=== PATIENT | female | born 1945 | race Caucasian/White ===

== ENCOUNTER 2020-06-10 11:44 | Observation (INO) | payer MEDICARE, OTHER, SELFPAY ==
--- NOTE | 2020-06-10 12:07 | ED_ITS ---
Documented by User: MARQUISE Santa 06/10/20 15:39 HPI - Skin/Abscess/Foreign Bdy General: Chief complaint: Skin/Abscess/Foreign Body Stated complaint: GROIN INFECTION Time Seen by Provider: 06/10/20 12:06 Source: patient Mode of arrival: ambulatory Limitations: no limitations History of Present Illness: HPI narrative: Patient is a nice 74-year-old female who presents to ED today with complaints of a perineal abscess. Patient tells me approximately 6 to 7 days ago she began noticing a pimple like lesion but states it quickly enlarged and became more painful. She was seen by her PCP 5 days ago and placed on clindamycin which she has been taking as directed. She was seen again by PCP today who recommended she come to the emergency department as abscess is continuing to worsen. Patient reports chills but no documented fevers. No nausea or vomiting. No history of MRSA. She is not a diabetic. MD complaint: abscess/boil Onset (ago): day(s) Tetanus up to date: yes Location: genitals Severity: moderate Pain Consistency: constant Relieving factors: none Exacerbating factors: palpation Context: none Associated symptoms: Reports chills; Deny fever(s), nausea or vomiting Treatments prior to arrival: antibiotic Review of Systems Const: Reports: chills; Denies: fever(s), body aches, fatigue or malaise Card: Denies: chest pain Resp: Denies: dyspnea GI: Denies: abdominal pain, nausea, vomiting, diarrhea or change in stool character : Denies: flank pain, difficulty voiding, dysuria, urinary frequency, urinary urgency or urinary hesitancy Musc: Denies: neck pain or back pain Skin/Breast: Reports: other (perineal abscess) Neuro: Denies: headache(s), numbness in extremities, weakness in extremities or sensory changes PFSH ED PFSH: Medical History (Updated 06/10/20 @ 16:32 by Akil Braden MD) CAD (coronary artery disease) Heart failure Hyperlipidemia Hypertension Hypothyroidism Surgical History (Updated 06/10/20 @ 16:33 by Akil Braden MD) History of cholecystectomy History of hysterectomy History of shoulder surgery Family History (Updated 06/10/20 @ 16:34 by Akil Braden MD) Father Liver cirrhosis Mother Throat cancer Other CAD (coronary artery disease) Social History (Updated 06/10/20 @ 16:34 by Akil Braden MD) Smoking and tobacco status: never smoked Alcohol intake: never Substance/Drug Use: never Physical Exam Const: COMMON NORMALS: no acute distress, patient oriented x3, no limitations, healthy appearing and alert HENMT: COMMON NORMALS: normocephalic and atraumatic HEAD & SCALP: normocephalic and atraumatic Resp: COMMON NORMALS: normal respiratory effort and clear to auscultation bilaterally AUSCULTATION: clear to auscultation bilaterally Cardio: COMMON NORMALS: regular rhythm RATE: tachycardic (mild) RHYTHM: regular rhythm GI: COMMON NORMALS: Normal to inspection, nondistended, normoactive bowel sounds present, Soft to palpation, non-tender, No hepatosplenomegaly present and no masses PALPATION: Yes Soft to palpation and Yes No hepatosplenomegaly present OTHER: pt has a 7-8cm erythematous extremely tender abscess noted to L perineal region; she has mild surrounding cellulitis extending towards rectum : COMMON NORMALS: Yes no CVA tenderness BLADDER/KIDNEY EXAM: Yes no CVA tenderness Back/Pelvis: COMMON NORMALS: no CVA tenderness Neuro: COMMON NORMALS: patient oriented x3 SENSORIUM/ORIENTATION: Yes alert Skin: OTHER: see abdominal exam Course Consultations: Consultation #1: Dr. Fischer-recommends admit to hospitalist and he will consult. Recommends adding Vancomycin to her Zosyn abx Time: 15:15 Vital Signs: Vital signs: Vital Signs Temperature 98.4 F 06/10/20 12:08 Pulse Rate 75 06/10/20 18:31 Respiratory Rate 17 06/10/20 18:31 Blood Pressure 90/51 06/10/20 18:31 Pulse Oximetry 94 06/10/20 18:31 MDM - Skin/Abscess/Foreign Bdy MDM Narrative: Medical decision making narrative: Dr. Squires is also seen and evaluated patient and agrees with need for admission. Patient has failed outpatient therapy for her abscess. Abscess on exam is much larger than what is seen via CT imaging. I have spoken to Dr. Fischer who recommends admit to hospitalist and he will consult. Dr. Squires will speak to hospitalist. Lab Data: Labs: Lab Results 06/10/20 06/10/20 06/10/20 Range/Units 12:31 12:55 12:55 WBC 11.3 H (4.0-10.0) 10^3/ uL RBC 4.06 L (4.1-5.3) 10^6/u L Hgb 13.0 (11.5-15.3) g/dL Hct 38.8 (37.0-47.0) % MCV 95.6 (81-99) fL MCH 32.0 (28.0-34.0) pg MCHC 33.5 (30.0-36.0) g/dL RDW 13.6 (12.1-15.1) % Plt Count 272 (130-400) 10^3/c mm MPV 10.0 (7.4-10.4) fL Neut % (Auto) 66.4 % Lymph % (Auto) 22.7 % Elliott % (Auto) 9.1 % Eos % (Auto) 0.9 % Baso % (Auto) 0.6 % Neut # (Auto) 7.53 (1.8-7.7) 10^3/u L Lymph # (Auto) 2.6 (0.8-4.8) 10^3/u L Elliott # (Auto) 1.0 H (0.2-0.9) 10^3/u L Eos # (Auto) 0.1 (0.0-0.8) 10^3/u L Baso # (Auto) 0.1 (0.0-0.1) 10^3/u L Nucleated RBC % (a uto) 0 % Nucleated RBCs # 0.0 /100WBC Sodium 135 L (136-145) mmol/L Potassium 4.4 (3.5-5.1) mmol/L Chloride 97 L (98-107) mmol/L Carbon Dioxide 26 (22-29) mmol/L Anion Gap 16.4 (5-19) BUN 12 (8-23) mg/dL Creatinine 0.8 (0.5-0.9) mg/dL GFR Calculation Not Reportable Glucose 116 H (65-115) mg/dL Calculated Osmolal ity 281 L (285-295) mOsm/k g Lactic Acid (0.5-2.2) mmol/L Calcium 9.2 (8.5-10.5) mg/dL Total Bilirubin 0.5 (0.15-1.2) mg/dL AST 22 (0-32) U/L ALT 19 (0-33) U/L Alkaline Phosphata se 104 (35-105) IU/L Total Protein 7.7 (6.6-8.7) g/dL Albumin 4.1 (3.5-5.2) g/dL Globulin 3.6 (1.3-4.6) g/dL Urine Color Yellow (Yellow) Urine Appearance Clear (CLEAR) Urine pH 5 (5-7) Ur Specific Gravit y 1.020 (1.005-1.030) Urine Protein Neg (Negative) Urine Glucose (UA) Norm (Normal) Urine Ketones Negative (Negative) Urine Blood 3+ H (Negative) Urine Nitrate Negative (Negative) Urine Bilirubin Neg (Negative) Urine Urobilinogen Norm (Negative) mg/dL Ur Leukocyte Pattie ase Negative (Negative) Urine RBC 0-4 H (0-2) /hpf Urine WBC 0-4 H (0-5) /hpf Ur Squamous Epith Cells 5-10 H (0-5) /hpf Amorphous Sediment Not Reportable Urine Bacteria 1+ H (NONE) /hpf Hyaline Casts 0-4 H /lpf Urine Mucus Trace /hpf 06/10/20 Range/Units 12:55 WBC (4.0-10.0) 10^3/ uL RBC (4.1-5.3) 10^6/u L Hgb (11.5-15.3) g/dL Hct (37.0-47.0) % MCV (81-99) fL MCH (28.0-34.0) pg MCHC (30.0-36.0) g/dL RDW (12.1-15.1) % Plt Count (130-400) 10^3/c mm MPV (7.4-10.4) fL Neut % (Auto) % Lymph % (Auto) % Elliott % (Auto) % Eos % (Auto) % Baso % (Auto) % Neut # (Auto) (1.8-7.7) 10^3/u L Lymph # (Auto) (0.8-4.8) 10^3/u L Elliott # (Auto) (0.2-0.9) 10^3/u L Eos # (Auto) (0.0-0.8) 10^3/u L Baso # (Auto) (0.0-0.1) 10^3/u L Nucleated RBC % (a uto) % Nucleated RBCs # /100WBC Sodium (136-145) mmol/L Potassium (3.5-5.1) mmol/L Chloride (98-107) mmol/L Carbon Dioxide (22-29) mmol/L Anion Gap (5-19) BUN (8-23) mg/dL Creatinine (0.5-0.9) mg/dL GFR Calculation Glucose (65-115) mg/dL Calculated Osmolal ity (285-295) mOsm/k g Lactic Acid 1.2 (0.5-2.2) mmol/L Calcium (8.5-10.5) mg/dL Total Bilirubin (0.15-1.2) mg/dL AST (0-32) U/L ALT (0-33) U/L Alkaline Phosphata se (35-105) IU/L Total Protein (6.6-8.7) g/dL Albumin (3.5-5.2) g/dL Globulin (1.3-4.6) g/dL Urine Color (Yellow) Urine Appearance (CLEAR) Urine pH (5-7) Ur Specific Gravit y (1.005-1.030) Urine Protein (Negative) Urine Glucose (UA) (Normal) Urine Ketones (Negative) Urine Blood (Negative) Urine Nitrate (Negative) Urine Bilirubin (Negative) Urine Urobilinogen (Negative) mg/dL Ur Leukocyte Pattie ase (Negative) Urine RBC (0-2) /hpf Urine WBC (0-5) /hpf Ur Squamous Epith Cells (0-5) /hpf Amorphous Sediment Urine Bacteria (NONE) /hpf Hyaline Casts /lpf Urine Mucus /hpf Imaging Data^: CT Abd/Pel: Radiologist's impression: [address] [id number] [address] Scan Report Signed Patient: Zaida Rendon Unit #: [id number] : 1945 Age/Sex: 74 / F ADM Date: 06/10/20 Loc: ER Room/Bed: Attending Dr: Ordering Provider/Ordering MD: Sameera Sousa Date of Service: 06/10/20 Procedure(s): CT pelvis w con* [id number] Accession Number(s): [id number] Report Number: [id number] WS: [id number] CT pelvis TECHNIQUE: Contrast-enhanced CT of the pelvis with coronal and sagittal reformatted images. CLINICAL INFORMATION: perineal abscess COMPARISON: None. DLP: 715.[address] scans at [facility] use at least one of these dose optimization techniques: automated exposure control; mA and/or kV adjustment per patient size (includes targeted exams where dose is matched to clinical indication); or iterative reconstruction. FINDINGS: Contrast-enhanced CT of the pelvis. Prior hysterectomy. In the area of concern, in the left perineum, there is soft tissue induration with edema. . Central low-attenuation peripherally enhancing low-attenuation collection measuring 2.1 x 1.2cm consistent with perineal abscess. This does not appear easily drainable. Adjacent soft tissue induration and soft tissue thickening. Subcutaneous edema in the left proximal thigh. Sigmoid diverticulosis. No evidence of acute diverticulitis. Tiny fat- containing umbilical hernia. A few reactive left inguinal lymph nodes. Grade 1 anterolisthesis L4 on L5 measuring 7 mm. Slight anterolisthesis L5 on S1. CT/CT pelvis w con* [id number] IMPRESSION: 1. Induration with inflammatory stranding and edema in the left perineum with peripheral enhancing fluid collection consistent with small abscess. This measures 2.1 x 1.2 cm and does not appear easily drainable. 2. Mild subcutaneous edema left upper thigh. A few reactive inguinal lymph nodes. 3. Sigmoid diverticulosis. No evidence of acute diverticulitis. Dictated By: Percy Estevez MD Signed By: Percy Estevez MD Signed Date/Time: 06/10/20 1445 DD/ 1412 Discharge Plan Discharge Patient Disposition: Admitted As Inpatient Admit Provider: Akil Braden Clinical Impression: Abscess of perineum Condition: Stable Sign Out Sign Out Data: Patient Sign Out occurred on 06/10/20 at 17:08. Patient's care was discussed, and care was transferred from to Gurinder Squires MD, [facility] [place]. Coding Level of Care Code ED Wound Care [facility] Consultant for Chg Fwd Exam Detailed Documented by User: Gurinder Squires MD, [facility] [place] 06/10/20 19:47 HPI - Skin/Abscess/Foreign Bdy General: Chief complaint: Skin/Abscess/Foreign Body Stated complaint: GROIN INFECTION Time Seen by Provider: 06/10/20 12:06 PFSH ED PFSH: Medical History (Updated 06/10/20 @ 16:32 by Akil Braden MD) CAD (coronary artery disease) Heart failure Hyperlipidemia Hypertension Hypothyroidism Surgical History (Updated 06/10/20 @ 16:33 by Akil Braden MD) History of cholecystectomy History of hysterectomy History of shoulder surgery Family History (Updated 06/10/20 @ 16:34 by Akil Braden MD) Father Liver cirrhosis Mother Throat cancer Other CAD (coronary artery disease) Social History (Updated 06/10/20 @ 16:34 by Akil Braden MD) Smoking and tobacco status: never smoked Alcohol intake: never Substance/Drug Use: never Course Consultations: Consultation #1: Discussed the patient with Dr. Braden, hospitalist and he kindly accepted the patient to his service. Time: 15:30 Vital Signs: Vital signs: Vital Signs Temperature 98.4 F 06/10/20 12:08 Pulse Rate 75 06/10/20 18:31 Respiratory Rate 17 06/10/20 18:31 Blood Pressure 90/51 06/10/20 18:31 Pulse Oximetry 94 06/10/20 18:31 MDM - Skin/Abscess/Foreign Bdy MDM Narrative: Medical decision making narrative: Kindly review the physician's information assistant note for complete history and physical. I also examined this patient and evaluated her and I agree with her findings. Essentially this is a 74-year-old female, nondiabetic, who presents with increasing swelling in her perineal region. She has about a 6 cm area of induration, redness, with no fluctuance but marked tenderness with a larger surrounding area of erythema. This is consistent with cellulitis. A CT scan done of her pelvis shows that there is a very small abscess which does not appear to be able to be drained at this time. She has been on antibiotics for 5 days and her symptoms are only worsening, so she has failed outpatient therapy. She therefore will benefit from inpatient stay and intravenous antibiotics. She will be evaluated by the general surgeon while she is in the hospital. I am concerned that if she is not admitted and given IV antibiotics she may develop a Roger's gangrene. I discussed my concerns with her and her and they are in agreement with the plan. Medical Records: Attestation: I reviewed the patient's medical records. Lab Data: Attestation: I reviewed the patient's lab results. Labs: Lab Results 06/10/20 06/10/20 06/10/20 Range/Units 12:31 12:55 12:55 WBC 11.3 H (4.0-10.0) 10^3/ uL RBC 4.06 L (4.1-5.3) 10^6/u L Hgb 13.0 (11.5-15.3) g/dL Hct 38.8 (37.0-47.0) % MCV 95.6 (81-99) fL MCH 32.0 (28.0-34.0) pg MCHC 33.5 (30.0-36.0) g/dL RDW 13.6 (12.1-15.1) % Plt Count 272 (130-400) 10^3/c mm MPV 10.0 (7.4-10.4) fL Neut % (Auto) 66.4 % Lymph % (Auto) 22.7 % Elliott % (Auto) 9.1 % Eos % (Auto) 0.9 % Baso % (Auto) 0.6 % Neut # (Auto) 7.53 (1.8-7.7) 10^3/u L Lymph # (Auto) 2.6 (0.8-4.8) 10^3/u L Elliott # (Auto) 1.0 H (0.2-0.9) 10^3/u L Eos # (Auto) 0.1 (0.0-0.8) 10^3/u L Baso # (Auto) 0.1 (0.0-0.1) 10^3/u L Nucleated RBC % (a uto) 0 % Nucleated RBCs # 0.0 /100WBC Sodium 135 L (136-145) mmol/L Potassium 4.4 (3.5-5.1) mmol/L Chloride 97 L (98-107) mmol/L Carbon Dioxide 26 (22-29) mmol/L Anion Gap 16.4 (5-19) BUN 12 (8-23) mg/dL Creatinine 0.8 (0.5-0.9) mg/dL GFR Calculation Not Reportable Glucose 116 H (65-115) mg/dL Calculated Osmolal ity 281 L (285-295) mOsm/k g Lactic Acid (0.5-2.2) mmol/L Calcium 9.2 (8.5-10.5) mg/dL Total Bilirubin 0.5 (0.15-1.2) mg/dL AST 22 (0-32) U/L ALT 19 (0-33) U/L Alkaline Phosphata se 104 (35-105) IU/L Total Protein 7.7 (6.6-8.7) g/dL Albumin 4.1 (3.5-5.2) g/dL Globulin 3.6 (1.3-4.6) g/dL Urine Color Yellow (Yellow) Urine Appearance Clear (CLEAR) Urine pH 5 (5-7) Ur Specific Gravit y 1.020 (1.005-1.030) Urine Protein Neg (Negative) Urine Glucose (UA) Norm (Normal) Urine Ketones Negative (Negative) Urine Blood 3+ H (Negative) Urine Nitrate Negative (Negative) Urine Bilirubin Neg (Negative) Urine Urobilinogen Norm (Negative) mg/dL Ur Leukocyte Pattie ase Negative (Negative) Urine RBC 0-4 H (0-2) /hpf Urine WBC 0-4 H (0-5) /hpf Ur Squamous Epith Cells 5-10 H (0-5) /hpf Amorphous Sediment Not Reportable Urine Bacteria 1+ H (NONE) /hpf Hyaline Casts 0-4 H /lpf Urine Mucus Trace /hpf 06/10/20 Range/Units 12:55 WBC (4.0-10.0) 10^3/ uL RBC (4.1-5.3) 10^6/u L Hgb (11.5-15.3) g/dL Hct (37.0-47.0) % MCV (81-99) fL MCH (28.0-34.0) pg MCHC (30.0-36.0) g/dL RDW (12.1-15.1) % Plt Count (130-400) 10^3/c mm MPV (7.4-10.4) fL Neut % (Auto) % Lymph % (Auto) % Elliott % (Auto) % Eos % (Auto) % Baso % (Auto) % Neut # (Auto) (1.8-7.7) 10^3/u L Lymph # (Auto) (0.8-4.8) 10^3/u L Elliott # (Auto) (0.2-0.9) 10^3/u L Eos # (Auto) (0.0-0.8) 10^3/u L Baso # (Auto) (0.0-0.1) 10^3/u L Nucleated RBC % (a uto) % Nucleated RBCs # /100WBC Sodium (136-145) mmol/L Potassium (3.5-5.1) mmol/L Chloride (98-107) mmol/L Carbon Dioxide (22-29) mmol/L Anion Gap (5-19) BUN (8-23) mg/dL Creatinine (0.5-0.9) mg/dL GFR Calculation Glucose (65-115) mg/dL Calculated Osmolal ity (285-295) mOsm/k g Lactic Acid 1.2 (0.5-2.2) mmol/L Calcium (8.5-10.5) mg/dL Total Bilirubin (0.15-1.2) mg/dL AST (0-32) U/L ALT (0-33) U/L Alkaline Phosphata se (35-105) IU/L Total Protein (6.6-8.7) g/dL Albumin (3.5-5.2) g/dL Globulin (1.3-4.6) g/dL Urine Color (Yellow) Urine Appearance (CLEAR) Urine pH (5-7) Ur Specific Gravit y (1.005-1.030) Urine Protein (Negative) Urine Glucose (UA) (Normal) Urine Ketones (Negative) Urine Blood (Negative) Urine Nitrate (Negative) Urine Bilirubin (Negative) Urine Urobilinogen (Negative) mg/dL Ur Leukocyte Pattie ase (Negative) Urine RBC (0-2) /hpf Urine WBC (0-5) /hpf Ur Squamous Epith Cells (0-5) /hpf Amorphous Sediment Urine Bacteria (NONE) /hpf Hyaline Casts /lpf Urine Mucus /hpf Discharge Plan Discharge Patient Disposition: Admitted As Inpatient Admit Provider: Akil Braden Clinical Impression: Abscess of perineum Condition: Stable Sign Out Sign Out Data: Patient Sign Out occurred on 06/10/20 at 17:08. Patient's care was discussed, and care was transferred from to Gurinder Squires MD, [facility] [place]. Coding Level of Care Code ED Wound Care Center Consultant for Chg Fwd Exam Detailed
[2020-06-10 12:08] VITALS: BP 145/75; PULSE 101; RESP 16; TEMP 36.9; O2SAT 96; BMI 30.7
--- NOTE | 2020-06-10 12:36 | CT_ITS ---
WS: [id number] CT pelvis TECHNIQUE: Contrast-enhanced CT of the pelvis with coronal and sagittal reformatted images. CLINICAL INFORMATION: perineal abscess COMPARISON: None. DLP: 715.[address] scans at [facility] use at least one of these dose optimization techniques: automat ed exposure control; mA and/or kV adjustment per patient size (includes targeted exams where dose is matched to clinical indication); or iterative reconstruction. FINDINGS: Contrast-enhanced CT of the pelvis. Prior hysterectomy. In the area of concern, in the left perineum, there is soft tissue induration with edema. . Central low-attenuation peripherally enhancing low-att enuation collection measuring 2.1 x 1.2cm consistent with perineal abscess. This does not appear easi ly drainable. Adjacent soft tissue induration and soft tissue thickening. Subcutaneous edema in the l eft proximal thigh. Sigmoid diverticulosis. No evidence of acute diverticulitis. Tiny fat-containing umbilical hernia. A few reactive left inguinal lymph nodes. Grade 1 anterolisthesis L4 on L5 measuring 7 mm. Slight anter olisthesis L5 on S1. CT/CT pelvis w con* [id number] IMPRESSION: 1. Induration with inflammatory stranding and edema in the left perineum with peripheral enhancing fluid collection consistent with small abscess. This measu res 2.1 x 1.2 cm and does not appear easily drainable. 2. Mild subcutaneous edema left upper thigh. A few reactive inguinal lymph nod es. 3. Sigmoid diverticulosis. No evidence of acute diverticulitis.
[2020-06-10 12:44] LABS: Add Urine Microscopic? YES; Bilirubin Urine Neg (Negative); Blood Urine 3+ (Negative); Glucose Urine UA Norm (Normal); Ketones Urine Negative (Negative); Leukocyte Esterase Urine Negative (Negative); Nitrate Urine Negative (Negative); Protein Urine Neg (Negative); Urine Appearance Clear (CLEAR); Urine Color Yellow (Yellow); Urobilinogen Urine Norm (Negative); pH Urine 5 (5-7)
[2020-06-10 12:48] LABS: Bacteria Urine 1+ /hpf; Hyaline Casts Urine 0-4 /lpf; Mucus Urine TRACE /hpf
[2020-06-10 12:49] LABS: Add Urine Culture? No; RBC Urine 0-4 /hpf (0-2); WBC Urine 0-4 /hpf (0-5)
[2020-06-10 13:09] LABS: Basophils # 0.1 10^3/uL (0.0-0.1); Basophils % 0.6 %; Eosinophils # 0.1 10^3/uL (0.0-0.8); Eosinophils % 0.9 %; Hematocrit 38.8 % (37.0-47.0); Lymphocytes # 2.6 10^3/uL (0.8-4.8); Lymphocytes % 22.7 %; Mean Corpuscular HGB Conc 33.5 g/dL (30.0-36.0); Mean Corpuscular Volume 95.6 fL (81-99); Monocytes % 9.1 %; Neutrophils # 7.53 10^3/uL (1.8-7.7); Neutrophils % 66.4 %; Nucleated Red Blood Cells % 0 %; Platelet Count 272 10^3/cmm (130-400); Red Blood Count 4.06 10^6/uL (4.1-5.3); Red Cell Distribution Width 13.6 % (12.1-15.1); White Blood Count 11.3 10^3/uL (4.0-10.0)
[2020-06-10 13:29] LABS: Lactic Sepsis W/Reflex 1.2 mmol/L (0.5-2.2)
[2020-06-10 13:30] LABS: Alanine Aminotransferase 19 U/L (0-33); Albumin Level 4.1 g/dL (3.5-5.2); Alkaline Phosphatase 104 IU/L (35-105); Anion Gap 16.4 (5-19); Aspartate Amino Transferase 22 U/L (0-32); Blood Urea Nitrogen 12 mg/dL (8-23); Calcium 9.2 mg/dL (8.5-10.5); Carbon Dioxide 26 mmol/L (22-29); Chloride 97 mmol/L (98-107); Creatinine Clr Calc Pharmacy 67.1951; Globulin 3.6 g/dL (1.3-4.6); Glucose 116 mg/dL (65-115); Osmolality Calculated 281 mOsm/kg (285-295); Potassium 4.4 mmol/L (3.5-5.1); Sodium 135 mmol/L (136-145); Total Bilirubin 0.5 mg/dL (0.15-1.2); Total Protein 7.7 g/dL (6.6-8.7)
[2020-06-10] MEDS: piperacillin-tazobactam 3.375 GM in sodium chloride 0.9% (plus) 50 ML IV (13:30)
[2020-06-10] MEDS: ondansetron 2 mg/ML SDV 2 mL 4 MG IVP (13:35)
[2020-06-10 13:38] VITALS: RESP 18; O2SAT 95
[2020-06-10] MEDS: morphine 4 mg/mL SDV 1 mL IVP ×2 (13:38→17:55)
[2020-06-10] MEDS: iodixanol 320 mg/mL 100mL Btl IV (14:00)
[2020-06-10] MEDS: vancomycin 1,000 MG in sodium chloride 0.9% 250 ML 250 MG IV (15:33)
--- NOTE | 2020-06-10 16:30 | PM.HP ---
Providers/Chief Complaint Primary Care Provider: Jenny Azevedo MD Chief Complaint: GROIN INFECTION History of Present Illness Zaida Rendon is a 74 year old female with a past medical history of CAD x5, CHF, hypertension, hyperlipidemia, hypothyroidism, GERD who presents to [facility] due to complaints of a perineal abscess. Patient developed a pimple over her perineal area, the pimple evolved, became large, fluctuant, painful, hot, warm. She had tried sitz bath's without any benefit. She presented to her primary care physician's office who prescribed her clindamycin, she is been taking it for the last 5 days, however the erythema, pain, tenderness has evolved. She also describes chills. No fevers. No cough. No exposure to COVID-19. Review of Systems Const: Denies: fever(s), chills, fatigue or malaise Eyes: Denies: change in vision or blurry vision ENMT: Denies: nasal congestion Card: Denies: chest pain Resp: Denies: dyspnea, productive cough, non-productive cough or wheezing GI: Denies: abdominal pain, nausea, vomiting, hematemesis, diarrhea, constipation, hematochezia or melena : Denies: flank pain, dysuria or urinary frequency Musc: Denies: neck pain or back pain Skin/Breast: Denies: rash Neuro: Denies: headache(s), dizziness or vertigo Psych: Denies: anxiety or depression Endo: Denies: polyuria or polydipsia Medications/Allergies Home Medications Medication Instructions Recorded Confirmed Last Taken Type acyclovir 800 mg PO DAILY PRN 06/10/20 06/10/20 06/10/20 History alprazolam 0.25 mg PO BID PRN 06/10/20 06/10/20 Unknown History amlodipine 2.5 mg PO DAILY@0600 06/10/20 06/10/20 06/10/20 History aspirin [Aspir-81] 81 mg PO DAILY@0600 06/10/20 06/10/20 06/10/20 History cetirizine [Zyrtec] 5 mg PO DAILY@0700 06/10/20 06/10/20 06/10/20 History clindamycin HCl 150 mg PO QID@06,10,15,19 06/10/20 06/10/2006/10/21 History furosemide See Rx Instructions .ROUTE .COMPLEX 06/10/20 06/10/20 06/09/20 History furosemide See Rx Instructions .ROUTE .COMPLEX 06/10/20 06/10/20 06/10/20 History hydrocodone-acetaminophen 1 tab PO Q4H PRN 06/10/20 06/10/20 06/10/20 History isosorbide mononitrate 60 mg PO DAILY@0600 06/10/20 06/10/20 06/10/20 History levothyroxine 50 mcg PO DAILY@0600 06/10/20 06/10/20 06/10/20 History metoprolol succinate 25 mg PO DAILY@1900 06/10/20 06/10/20 06/09/20 History naloxone [Narcan] 4 mg INTRANASAL ONCE 06/10/20 06/10/20 Unknown History omeprazole 20 mg PO DAILY@0600 06/10/20 06/10/20 Unknown History rosuvastatin 20 mg PO DAILY@1900 06/10/20 06/10/20 06/09/20 History Allergies Allergy/AdvReac Type Severity Reaction Status Date / Time acetaminophen [From Zeynep] Allergy ALGY-Difficulty Verified 06/10/20 12:17 Breathing chlorpheniramine Allergy ALGY-Difficulty Verified 06/10/20 12:17 [From Zeynep] Breathing nabumetone [From Relafen] Allergy ALGY-Rash Verified 06/10/20 12:17 oxymetazoline [From Zeynep] Allergy ALGY-Difficulty Verified 06/10/20 12:17 Breathing pheniramine [From Zeynep] Allergy ALGY-Difficulty Verified 06/10/20 12:17 Breathing phenylephrine [From Zeynep] Allergy ALGY-Difficulty Verified 06/10/20 12:17 Breathing pseudoephedrine Allergy ALGY-Difficulty Verified 06/10/20 12:17 [From Zeynep] Breathing Sulfa (Sulfonamide Allergy ALGY-Hives Verified 06/10/20 12:17 Antibiotics) sodium bisulphite Allergy ADR-Cough Uncoded 06/10/20 12:17 PFSH Acute PFSH: Medical History (Updated 06/10/20 @ 16:32 by Akil Braden MD) CAD (coronary artery disease) Heart failure Hyperlipidemia Hypertension Hypothyroidism Surgical History (Updated 06/10/20 @ 16:33 by Akil Braden MD) History of cholecystectomy History of hysterectomy History of shoulder surgery Family History (Updated 06/10/20 @ 16:34 by Akil Braden MD) Father Liver cirrhosis Mother Throat cancer Other CAD (coronary artery disease) Social History (Updated 06/10/20 @ 16:34 by Akil Braden MD) Smoking and tobacco status: never smoked Alcohol intake: never Substance/Drug Use: never Vitals/I&O/Wt Last Vital Signs Temp 98.4 F 06/10/20 12:08 Pulse 101 H 06/10/20 12:08 Resp 18 06/10/20 13:38 BP 145/75 06/10/20 12:08 Pulse Ox 95 06/10/20 13:38 Weight last 48 hrs Weight 86.183 kg Physical Exam Const: COMMON NORMALS: no acute distress and patient oriented x3 GENERAL APPEARANCE: cooperative and comfortable HENMT: COMMON NORMALS: normocephalic HEAD & SCALP: normocephalic Eye: COMMON NORMALS: Equal, round and reactive pupils present and EOMs intact bilaterally GENERAL EYE: appearance normal, both eyes and all related structures PUPIL: Yes Equal, round and reactive pupils present Neck/C-Spine: COMMON NORMALS: full ROM, no lymphadenopathy, no JVD and Thyroid normal THYROID: Thyroid normal Lymph: LYMPHATIC: no lymphadenopathy noted Resp: COMMON NORMALS: normal respiratory effort, No retractions, No use of accessory muscles and clear to auscultation bilaterally AUSCULTATION: clear to auscultation bilaterally Cardio: COMMON NORMALS: no JVD, regular rate, regular rhythm, S1 normal heart sound present, S2 normal heart sound present, No gallops present (Cardio), No clicks present (Cardio) and No murmurs present (Cardio) RATE: regular rate RHYTHM: regular rhythm HEART SOUNDS: S1 normal heart sound present and S2 normal heart sound present GI: COMMON NORMALS: Normal to inspection, nondistended, normoactive bowel sounds present, Soft to palpation, non-tender and No hepatosplenomegaly present PALPATION: Yes Soft to palpation and Yes No hepatosplenomegaly present Back/Pelvis: OTHER: Over the perineum, a 2 x 3 cm area of erythema, tenderness, abscess, tender, Extremity: COMMON NORMALS: normal to inspection, full ROM and no pedal edema Neuro: COMMON NORMALS: patient oriented x3, CN's II-XII intact bilaterally, moves all extremities and no focal motor deficits Psych: COMMON NORMALS: mental status grossly normal, Normal thought process present and cooperative THOUGHT PROCESS: Normal thought process present Data : 06/10/20 12:55 06/10/20 12:55 Micro: Microbiology 06/10/20 13:04 Blood Culture - Preliminary Blood SPECIMEN COLLECTED 06/10/20 13:04 Blood Culture - Preliminary Blood SPECIMEN COLLECTED A&P Assessment and plan (1) Abscess of perineum: -With surrounding cellulitis -Induration with inflammatory stranding and edema in the left perineum with peripheral enhancing fluid collection consistent with small abscess. This measures 2.1 x 1.2 cm and does not appear easily drainable. -Failed outpatient antibiotic treatment Plan: -Consult general surgery for possible drainage -Vancomycin, Rocephin, Flagyl -Blood cultures, wound cultures -Monitor clinical progress monitor for fevers -Heparin for DVT prophylaxis -Full code Status: Acute (2) CAD (coronary artery disease): Status: Acute (3) Hypertension: Status: Acute (4) Hyperlipidemia: Status: Acute (5) Heart failure: Status: Acute (6) Hypothyroidism: Status: Acute Attestations Medical Necessity Statement*: Patient course hospitalization for abscess in the perineum, with surrounding cellulitis, outpatient with observation Coding Level of Care Code Acute Digital Camera Technician for [facility] Blank Diagnoses Abscess of perineum L02.215 CAD (coronary artery disease) I25.10 Hypertension I10 Hyperlipidemia E78.5 Heart failure I50.9 Hypothyroidism E03.9
[2020-06-10] MEDS: ketorolac 30 mg/mL INJ IVP (17:51)
[2020-06-10 17:55] VITALS: RESP 16; O2SAT 95
[2020-06-10 18:31] VITALS: BP 90/51; PULSE 75; RESP 17; O2SAT 94
[2020-06-10 20:04] VITALS: BP 115/75; PULSE 76; RESP 16; O2SAT 96
[2020-06-10 20:48] VITALS: BP 133/68; PULSE 71; RESP 17; TEMP 36.4; O2SAT 97
[2020-06-10 21:22] LABS: Procalcitonin 0.09 ng/mL (0-0.5)
[2020-06-10] MEDS: famotidine 20 mg Tablet PO (21:26)
[2020-06-10] MEDS: metroNIDAZOLE IV 500 MG/100 ML PREMIX 100 MG IV (21:26)
[2020-06-10] MEDS: metoprolol succinate ER (24 HR) 25 mg Tablet PO (22:34)
[2020-06-10] MEDS: heparin 5,000 unit/mL INJ 1 mL 5000 UNIT SUBCUT (22:34)
[2020-06-10] MEDS: cefTRIAXone 1,000 MG in sodium chloride 0.9% (plus) 50 ML 100 MG IV (23:18)
[2020-06-11] VITALS: BP 93/58; PULSE 67; RESP 17; TEMP 36.6; O2SAT 95
[2020-06-11 04:00] VITALS: BP 87/50; PULSE 66; RESP 17; TEMP 36.6; O2SAT 91
[2020-06-11] MEDS: vancomycin 1,500 MG/300 ML PIGGYBACK 200 MG IV (04:23)
[2020-06-11 05:06] LABS: Basophils % 0.5 %; Eosinophils # 0.2 10^3/uL (0.0-0.8); Eosinophils % 2.9 %; Hematocrit 38.6 % (37.0-47.0); Hemoglobin 12.7 g/dL (11.5-15.3); Lymphocytes # 1.8 10^3/uL (0.8-4.8); Lymphocytes % 23.9 %; Mean Corpuscular HGB Conc 32.9 g/dL (30.0-36.0); Mean Corpuscular Hemoglobin 31.6 pg (28.0-34.0); Mean Platelet Volume 10.2 fL (7.4-10.4); Monocytes # 0.6 10^3/uL (0.2-0.9); Monocytes % 8.2 %; Neutrophils # 4.95 10^3/uL (1.8-7.7); Neutrophils % 64.1 %; Nucleated Red Blood Cells % 0 %; Platelet Count 256 10^3/cmm (130-400); Red Blood Count 4.02 10^6/uL (4.1-5.3); Red Cell Distribution Width 13.7 % (12.1-15.1); White Blood Count 7.7 10^3/uL (4.0-10.0)
[2020-06-11 05:34] VITALS: BP 103/58
[2020-06-11 05:36] LABS: Alanine Aminotransferase 22 U/L (0-33); Albumin Level 3.7 g/dL (3.5-5.2); Alkaline Phosphatase 87 IU/L (35-105); Anion Gap 14.2 (5-19); Aspartate Amino Transferase 24 U/L (0-32); Blood Urea Nitrogen 14 mg/dL (8-23); Calcium 9.6 mg/dL (8.5-10.5); Carbon Dioxide 27 mmol/L (22-29); Chloride 99 mmol/L (98-107); Globulin 3.6 g/dL (1.3-4.6); Glucose 93 mg/dL (65-115); Magnesium 2.2 mg/dL (1.7-2.3); Osmolality Calculated 282 mOsm/kg (285-295); Phosphorus 5.2 mg/dL (2.5-4.5); Potassium 4.2 mmol/L (3.5-5.1); Sodium 136 mmol/L (136-145); Total Bilirubin 0.4 mg/dL (0.15-1.2); Total Protein 7.3 g/dL (6.6-8.7)
[2020-06-11] MEDS: pantoprazole DR 40 mg Tablet PO (06:07)
[2020-06-11] MEDS: amlodipine 5 mg Tablet 2.5 MG PO (06:07)
[2020-06-11] MEDS: cetirizine 10 mg Tablet 5 MG PO (06:07)
[2020-06-11] MEDS: aspirin 81 mg EC Tablet PO (06:07)
[2020-06-11] MEDS: levothyroxine 50 mcg Tablet PO (06:07)
[2020-06-11] MEDS: isosorbide mononitrate ER 60 mg Tablet PO (06:08)
[2020-06-11] MEDS: metroNIDAZOLE IV 500 MG/100 ML PREMIX 100 MG IV ×2 (06:27→13:46)
[2020-06-11 07:31] VITALS: BP 104/65; PULSE 67; RESP 16; TEMP 36.8; O2SAT 95
[2020-06-11] MEDS: heparin 5,000 unit/mL INJ 1 mL 5000 UNIT SUBCUT (08:40)
[2020-06-11] MEDS: famotidine 20 mg Tablet PO (08:40)
[2020-06-11 11:51] VITALS: BP 109/63; PULSE 70; RESP 16; TEMP 36.6; O2SAT 93
--- NOTE | 2020-06-11 12:04 | P.PN_ITS ---
Subjective Subjective: Interval history: Patient was examined this morning, she tells me that she is having drainage and blood coming from her perineal abscess, she has not gotten any pain medications yet, no fevers, chills, no nausea, no vomiting, Vitals/I&O/Wt Last Vital Signs Temp 97.8 F 06/11/20 11:51 Pulse 70 06/11/20 11:51 Resp 16 06/11/20 11:51 BP 109/63 06/11/20 11:51 Pulse Ox 93 06/11/20 11:51 06/10/20 06/11/20 06/11/20 22:59 06:59 14:59 Intake Total 340 / 340 400 / 740 100 / 100 Balance 340 / 340 400 / 740 100 / 100 Weight last 48 hrs Weight 86.183 kg Physical Exam Const: COMMON NORMALS: no acute distress and patient oriented x3 HENMT: COMMON NORMALS: normocephalic HEAD & SCALP: normocephalic Neck/C-Spine: COMMON NORMALS: no JVD Resp: COMMON NORMALS: normal respiratory effort, No retractions, No use of accessory muscles and clear to auscultation bilaterally AUSCULTATION: clear to auscultation bilaterally Cardio: COMMON NORMALS: no JVD, regular rate, regular rhythm, S1 normal heart sound present and S2 normal heart sound present RATE: regular rate RHYTHM: regular rhythm HEART SOUNDS: S1 normal heart sound present and S2 normal heart sound present GI: COMMON NORMALS: Normal to inspection, nondistended, normoactive bowel sounds present, Soft to palpation, non-tender, No hepatosplenomegaly present, no masses and no bruits PALPATION: Yes Soft to palpation and Yes No hepatosplenomegaly present Extremity: COMMON NORMALS: capillary refill normal, no clubbing, cyanosis or edema, no calf tenderness and no pedal edema Neuro: COMMON NORMALS: patient oriented x3 Psych: COMMON NORMALS: mental status grossly normal Skin: NARRATIVE SKIN EXAM: Perineal abscess, with surrounding cellulitis, improved, with active bleeding and purulent drainage Data : 06/11/20 04:50 06/11/20 04:50 Micro: Microbiology 06/10/20 13:04 Blood Culture - Preliminary Blood SPECIMEN COLLECTED 06/10/20 13:04 Blood Culture - Preliminary Blood SPECIMEN COLLECTED A&P Assessment and plan (1) Abscess of perineum: -With surrounding cellulitis -Induration with inflammatory stranding and edema in the left perineum with peripheral enhancing fluid collection consistent with small abscess. This measures 2.1 x 1.2 cm and does not appear easily drainable. -Failed outpatient antibiotic treatment Plan: -Consult general surgery for drainage today, n.p.o. -Vancomycin, Rocephin, Flagyl -Blood cultures, wound cultures -Monitor clinical progress monitor for fevers -Heparin for DVT prophylaxis -Full code Status: Acute (2) CAD (coronary artery disease): Status: Acute (3) Hypertension: Status: Acute (4) Hyperlipidemia: Status: Acute (5) Heart failure: Status: Acute (6) Hypothyroidism: Status: Acute Attestations Medical Necessity Statement*: Patient requires hospitalization for abscess of the perineum, required IV antibiotic therapy, surgical drainage Coding Level of Care Code Acute Grain Elevator Superintendent for [facility] Fwd Diagnoses Abscess of perineum L02.215 CAD (coronary artery disease) I25.10 Hypertension I10 Hyperlipidemia E78.5 Heart failure I50.9 Hypothyroidism E03.9
[2020-06-11] MEDS: HYDROcodone-acetaminophen 5-325 mg Tablet 1 TAB PO (12:37)
[2020-06-11] MEDS: morphine 4 mg/mL SDV 1 mL 3 MG IVP (14:11)
--- NOTE | 2020-06-11 14:37 | P.DS_ITS ---
Discharge Providers Date of Admission: 06/10/20 15:41 Date of Discharge: June 11, 2020 Attending Provider at Admission: Akil Braden MD Attending Provider at Discharge: Akil Braden MD Primary Care Provider: Jenny Azevedo MD Diagnoses at Discharge Discharge Diagnosis (1) Abscess of perineum: Status: Acute (2) CAD (coronary artery disease): Status: Acute (3) Hypertension: Status: Acute (4) Hyperlipidemia: Status: Acute (5) Heart failure: Status: Acute (6) Hypothyroidism: Status: Acute Reason for Visit Reason for Visit: GROIN INFECTION Hospital Course Hospital Course Zaida Rendon is a 74 year old female with a past medical history of CAD x5, CHF, hypertension, hyperlipidemia, hypothyroidism, GERD who presents to [facility] due to complaints of a perineal abscess. Patient developed a pimple over her perineal area, the pimple evolved, became large, fluctuant, painful, hot, warm. She had tried sitz bath's without any benefit. She presented to her primary care physician's office who prescribed her clindamycin, she is been taking it for the last 5 days, however the erythema, pain, tenderness has evolved. She also describes chill Patient was admitted to [facility] for perineal abscess with surr ounding cellulitis, received broad-spectrum antibiotic therapy, had a incision and drainage by Dr. Fischer, with packing material placed. Patient will be discharged on 7 days of doxycycline and Augmentin, Ultram for pain, follow-up with Dr. Fischer on Wednesday for removal of packing. Physical Exam Const: COMMON NORMALS: no acute distress and patient oriented x3 HENMT: COMMON NORMALS: normocephalic HEAD & SCALP: normocephalic Neck/C-Spine: COMMON NORMALS: no JVD Resp: COMMON NORMALS: normal respiratory effort, No retractions, No use of accessory muscles and clear to auscultation bilaterally AUSCULTATION: clear to auscultation bilaterally Cardio: COMMON NORMALS: no JVD, regular rate, regular rhythm, S1 normal heart sound present and S2 normal heart sound present RATE: regular rate RHYTHM: regular rhythm HEART SOUNDS: S1 normal heart sound present and S2 normal heart sound present GI: COMMON NORMALS: Normal to inspection, nondistended, normoactive bowel sounds present, Soft to palpation, non-tender, No hepatosplenomegaly present, no masses and no bruits PALPATION: Yes Soft to palpation and Yes No hepatosplenomegaly present Extremity: COMMON NORMALS: capillary refill normal, no clubbing, cyanosis or edema, no calf tenderness and no pedal edema Neuro: COMMON NORMALS: patient oriented x3 Psych: COMMON NORMALS: mental status grossly normal Discharge Data Data Completed and Pending: Completed Studies During Hospitalization Category Date Time Status CT pelvis w con* [id number] Urgent Cat Scan 06/10/20 12:36 Completed Pending at discharge Category Date Time Status Blood Culture Sta t Lab 06/10/20 13:04 Results Complete Blood Co unt w/Auto AM LABS Lab 06/12/20 04:00 Ordered Complete Blood Co unt w/Auto AM LABS Lab 06/13/20 04:00 Ordered Comprehensive Met abolic Panel AM LA BS Lab 06/12/20 04:00 Ordered Comprehensive Met abolic Panel AM LA BS Lab 06/13/20 04:00 Ordered Magnesium AM LABS Lab 06/12/20 04:00 Ordered Magnesium AM LABS Lab 06/13/20 04:00 Ordered Phosphorus AM LAB S Lab 06/12/20 04:00 Ordered Phosphorus AM LAB S Lab 06/13/20 04:00 Ordered Vancomycin Trough Timed Lab 06/12/20 03:00 Ordered Labs from last 24 hours 06/11/20 06/11/20 06/10/20 04:50 04:50 12:55 WBC 7.7 RBC 4.02 L Hgb 12.7 Hct 38.6 MCV 96.0 MCH 31.6 MCHC 32.9 RDW 13.7 Plt Count 256 MPV 10.2 Neut % (Auto) 64.1 Lymph % (Auto) 23.9 [place] % (Auto) 8.2 Eos % (Auto) 2.9 Baso % (Auto) 0.5 Neut # (Auto) 4.95 Lymph # (Auto) 1.8 [place] # (Auto) 0.6 Eos # (Auto) 0.2 Baso # (Auto) 0.0 Nucleated RBC % (a uto) 0 Nucleated RBCs # 0.0 Sodium 136 Potassium 4.2 Chloride 99 Carbon Dioxide 27 Anion Gap 14.2 BUN 14 Creatinine 0.9 GFR Calculation Not Reportable Glucose 93 Calculated Osmolal ity 282 L Calcium 9.6 Phosphorus 5.2 H Magnesium 2.2 Total Bilirubin 0.4 AST 24 ALT 22 Alkaline Phosphata se 87 C-Reactive Protein 47.0 H Total Protein 7.3 Albumin 3.7 Globulin 3.6 Procalcitonin 0.09 Vitals: Last Vital Signs Temp 97.8 F 06/11/20 11:51 Pulse 70 06/11/20 11:51 Resp 16 06/11/20 11:51 BP 109/63 06/11/20 11:51 Pulse Ox 93 06/11/20 11:51 Discharge Plan Discharge Patient Disposition: Home Condition: Stable Prescriptions: New tramadol 50 mg tablet 50 mg PO Q12H PRN (Reason: pain) 7 Days Qty: 14 RF: 0 amoxicillin-pot clavulanate [Augmentin] 875-125 mg tablet 1 tab PO Q12H 7 Days Qty: 14 RF: 0 doxycycline hyclate 100 mg tablet 100 mg PO BID 7 Days Qty: 14 RF: 0 Continued furosemide 40 mg tablet See Rx Instructions .ROUTE .COMPLEX RF: 0 Zyrtec 10 mg Tablet 5 mg PO DAILY@0700 RF: 0 amlodipine 2.5 mg tablet 2.5 mg PO DAILY@0600 RF: 0 acyclovir 800 mg tablet 800 mg PO DAILY PRN (Reason: Pain) RF: 0 isosorbide mononitrate 60 mg tablet extended release 24 hr 60 mg PO DAILY@0600 RF: 0 alprazolam 0.25 mg Tablet 0.25 mg PO BID PRN (Reason: Anxiety) RF: 0 levothyroxine 50 mcg tablet 50 mcg PO DAILY@0600 RF: 0 omeprazole 20 mg capsule,delayed release(DR/EC) 20 mg PO DAILY@0600 RF: 0 furosemide 20 mg tablet See Rx Instructions .ROUTE .COMPLEX RF: 0 metoprolol succinate 25 mg tablet extended release 24 hr 25 mg PO DAILY@1900 RF: 0 rosuvastatin 20 mg tablet 20 mg PO DAILY@1900 RF: 0 Narcan 4 mg/actuation spray,non-aerosol 4 mg INTRANASAL ONCE RF: 0 Aspir-81 81 mg Tablet,Delayed Release (Dr/Ec) 81 mg PO DAILY@0600 RF: 0 Nitrostat 0.4 mg Tablet, Sublingual 0.4 mg SUBLINGUAL Q5M PRN (Reason: Chest Pain) RF: 0 Prolia 60 mg/mL Syringe SUBCUT RF: 0 Ducodyl (bisacodyl) 5 mg Tablet,Delayed Release (Dr/Ec) 5 mg PO BID RF: 0 Discontinued hydrocodone-acetaminophen 5-325 mg tablet 1 tab PO Q4H PRN (Reason: Pain) RF: 0 clindamycin HCl 150 mg capsule 150 mg PO QID@06,,,19 RF: 0 Discharge Orders: Discharge Order (Routine); Ordered 06/11/20 Ordered By: Akil Braden Referrals: Jenny Azevedo MD [Primary Care Provider] - Santo Fischer MD [Physician] - 06/14/20 (remove packing) Discharge Diet: Cardiac Discharge Activity: Resume usual activity Activity Restrictions/Additional Instructions: -take antibiotics as prescribed -If any worsening fevers, chills come back to emergency room -Keep packing material in, keep the area clean and dry -Tramadol for pain -Follow-up with Dr. Fischer on Wednesday for removal of packing Discharge Attestations Time Spent in Discharge Care*: less than 30 min Quality Metrics Clinical Quality Measures During this hospital stay, did patient experience: None Coding Level of Care Code Acute Em Physician for [facility] Fwd Diagnoses Abscess of perineum L02.215 CAD (coronary artery disease) I25.10 Hypertension I10 Hyperlipidemia E78.5 Heart failure I50.9 Hypothyroidism E03.9
[2020-06-11 15:25] VITALS: BP 121/68; PULSE 77; RESP 18; TEMP 36.5; O2SAT 93
--- NOTE | 2020-06-16 13:17 | P.CONIM_ITS ---
Providers/Reason For Consult Consulting Physican/Specialty*: Dr. 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 She tried sitz bath's but it progressively got worse in spite of being on clindamycin. She denies any fevers or chills. A CT of the pelvis showed 2.1 x 1.2 cm collection with surrounding edema and induration and patient is admitted to the hospital for IV antibiotics Review of Systems General: Reports: 10 or more systems reviewed and unremarkable except in HPI and below Meds/Allergies Home Medications and Allergies Home Medications Medication Instructions Recorded Confirmed Last Taken Type Ducodyl (bisacodyl) 5 mg PO BID 06/10/20 06/14/20 06/10/20 06:00 History Narcan 4 mg INTRANASAL ONCE 06/10/20 06/14/20 Unknown History Nitrostat 0.4 mg SUBLINGUAL Q5M PRN 06/10/20 06/14/20 05/24/20 20:00 History Prolia mg SUBCUT 06/10/20 06/14/20 Unknown History Zyrtec 5 mg PO DAILY@0700 06/10/20 06/14/20 06/10/20 History acyclovir 800 mg PO DAILY PRN 06/10/20 06/14/20 06/10/20 History alprazolam 0.25 mg PO BID PRN 06/10/20 06/14/20 Unknown History amlodipine 2.5 mg PO DAILY@0600 06/10/20 06/14/20 06/10/20 History aspirin 81 mg PO DAILY@0600 06/10/20 06/14/20 06/10/20 History furosemide See Rx Instructions .ROUTE .COMPLEX 06/10/20 06/14/20 06/09/20 History furosemide See Rx Instructions .ROUTE .COMPLEX 06/10/20 06/14/20 06/10/20 History isosorbide mononitrate 60 mg PO DAILY@0600 06/10/20 06/14/20 06/10/20 History levothyroxine 50 mcg PO DAILY@0600 06/10/20 06/14/20 06/10/20 History metoprolol succinate 25 mg PO DAILY@1900 06/10/20 06/14/20 06/09/20 History omeprazole 20 mg PO DAILY@0600 06/10/20 06/14/20 Unknown History rosuvastatin 20 mg PO DAILY@1900 06/10/20 06/14/20 06/09/20 History amoxicillin-pot clavulanate 1 tab PO Q12H 7 Days #14 tab 06/11/20 06/14/20 Unknown Rx [Augmentin] doxycycline hyclate 100 mg PO BID 7 Days #14 tab 06/11/20 06/14/20 Unknown Rx tramadol 50 mg PO Q12H PRN 7 Days #14 tab 06/11/20 06/14/20 Unknown Rx Allergies Allergy/AdvReac Type Severity Reaction Status Date / Time acetaminophen [From Zeynep] Allergy ALGY-Difficulty Verified 06/14/20 09:38 Breathing chlorpheniramine Allergy ALGY-Difficulty Verified 06/14/20 09:38 [From Zeynep] Breathing nabumetone [From Sarah] Allergy ALGY-Rash Verified 06/14/20 09:38 oxymetazoline [From Zeynep] Allergy ALGY-Difficulty Verified 06/14/20 09:38 Breathing pheniramine [From Zeynep] Allergy ALGY-Difficulty Verified 06/14/20 09:38 Breathing phenylephrine [From Zeynep] Allergy ALGY-Difficulty Verified 06/14/20 09:38 Breathing pseudoephedrine Allergy ALGY-Difficulty Verified 06/14/20 09:38 [From Zeynep] Breathing Sulfa (Sulfonamide Allergy ALGY-Hives Verified 06/14/20 09:38 Antibiotics) sodium bisulphite Allergy ADR-Cough Uncoded 06/14/20 09:38 PFSH Acute PFSH: Medical History CAD (coronary artery disease) Heart failure Hyperlipidemia Hypertension Hypothyroidism Surgical History H/O tubal ligation H/O varicose vein ligation History of cholecystectomy History of coronary artery stent placement History of hysterectomy History of incision and drainage (~05/2020) History of shoulder surgery Hx of appendectomy Family History Father Liver cirrhosis Mother Throat cancer Other CAD (coronary artery disease) Social History Smoking and tobacco status: never smoked Alcohol intake: never Vitals/I&O/Wt Last Vital Signs Temp 97.7 F 06/11/20 15:25 Pulse 77 06/11/20 15:25 Resp 18 06/11/20 15:25 BP 121/68 06/11/20 15:25 Pulse Ox 93 06/11/20 15:25 Physical Exam Narrative: EXAM NARRATIVE: HEENT: Normocephalic Eye: Sclera /conjunctiva normal Respiratory and chest: Bilateral clear breath sounds on auscultation Cardiovascular: Normal S1 and S2 heart sounds Abdomen: Soft to palpation Neurological: Oriented to place person and time Skin: Intact, left perivalvular abscess, draining, with surrounding area of erythema and induration, tender to palpation Data Micro: Micro: Microbiology 06/10/20 13:04 Blood Culture - Fi nal Blood NO GROWTH AFTER 5 DAYS 06/10/20 13:04 Blood Culture - Fi nal Blood NO GROWTH AFTER 5 DAYS A&P Assessment and plan (1) Vulvar abscess: Sent [id number] female with perivalvular abscess which is now starting to drain. Patient is hemodynamically stable with no evidence of sepsis. Plan for incision and drainage of perivalvular abscess at the bedside Procedure, risks, benefits and alternatives have been discussed with the patient who wishes to proceed with surgery. Status: Acute Coding Level of Care Code Acute Strategic Account Director for [facility] Diagnoses Vulvar abscess N76.4
--- NOTE | 2020-06-16 13:20 | PM.ACPR ---
Procedure/Consent Time out: Time Out Performed: Yes Consent: Consent for Procedure: Consent obtained from patient Procedure Narrative: Preop diagnosis: Left perivalvular abscess Postop diagnosis:'Left perivalvular abscess measuring about 4 x 2 cm x 1 cm Surgeon: Dr. Fischer Anesthesia: Local anesthesia Description of the procedure. The patient's perivulvar area was prepped and draped in a sterile manner. Using 11 blade a longitudinal 3 cm incision was made to extend the existing draining sinus. Loculations were taken down bluntly, wound irrigated with saline and packed with half-inch ribbon gauze. Sterile dressings were applied. Patient tolerated procedure well. Acute Procedures Epistaxis Control: Time out performed: Yes
== END 2020-06-11 16:21 | disposition home or self-care (01) ==
LOC: ER 17:08 → MEDSURG 19:47
PROVIDERS: Physician Assistant; Admitting Provider Family Medicine; Emergency Provider Family Medicine; PCP Family Medicine; Visit Provider Family Medicine
DX: L02.215 Cutaneous abscess of perineum (principal); I25.10 Atherosclerotic heart disease of native coronary artery without angina pectoris; E78.5 Hyperlipidemia, unspecified; I11.0 Hypertensive heart disease with heart failure; I50.9 Heart failure, unspecified; E03.9 Hypothyroidism, unspecified
CPT/HCPCS: 12345; 72193; 80053; 81001; 83605; 83735; 84100; 84145; 85025; 86140; 87040; 96365; 96367; 96372; 96375; 99283; 99285; G0378; J0696; J1644; J1885; J2270; J2405; J2543; J3370; J7050; Q9967; S0030

== ENCOUNTER → 2022-03-02 16:03 | Outpatient (BNVA) | payer MEDICARE, OTHER, SELFPAY | PROVIDERS: PCP Family Medicine; Visit Provider Nurse Practitioner Family | DX: R35.0 Frequency of micturition (principal); N76.4 Abscess of vulva; N39.0 Urinary tract infection, site not specified; R53.83 Other fatigue; I50.9 Heart failure, unspecified; J06.9 Acute upper respiratory infection, unspecified; I10 Essential (primary) hypertension | CPT/HCPCS: 80053; 81000; 83880; 85025; 87086 ==

== ENCOUNTER 2022-03-04 13:43 | Outpatient (CLI) | payer MEDICARE, OTHER, SELFPAY ==
--- NOTE | 2022-03-04 15:00 | CT_ITS ---
WS: [id number] CT ABDOMEN AND PELVIS WITH CONTRAST HISTORY: R10.9 - Unspecified abdominal pain TECHNIQUE: Imaging performed of the abdomen and pelvis with IV contrast. Single phase imaging of the abdomen. Coronal and sagittal reformats are submitted. All CT scans at [facility] use at [facility] [address] one of these dose optimization techniques: automated exposure control; mA and/or kV adjustment per patient size (includes targeted exams where dose is matched to clinical indication); or iterative re construction. IV CONTRAST: Omnipaque 350; 95 mL IV. Oral contrast: Yes. DLP: 1206.38 mGy.cm COMPARISON: Prior pelvis CT 06/10/2020 Lower thorax: Lung bases are clear. Mild cardiomegaly. Small hiatal hernia. Liver/biliary system: Normal size with no intrahepatic dilatation. Gallbladder: Status post cholecystectomy. Pancreas: Normal size pancreas and pancreatic duct. No adjacent inflammation. Spleen: Normal size spleen. No mass or infarct. Adrenal glands: Normal. Right kidney: Normal size kidney. Extrarenal pelvis. No obstruction. No perinephric stranding. Left kidney: Normal. Aorta: Mild atherosclerosis with no aneurysm. Lymphadenopathy: None. Free fluid: None. GI tract: Mildly distended stomach. There is mild thickening of the stomach mucosa which could be due to only to partial distention. No adjacent inflammation within the fat. No small bowel obstruction. No wall thickening. Prior appendectomy. There is moderate fecal retention throughout the colon. Numer ous diverticula beginning in the descending and sigmoid colon. No evidence for acute diverticulitis. There is mild atherosclerotic plaque at the origin of celiac axis and SMA. Abdominal wall: Unremarkable abdominal wall. No hernia. Pelvis: No free fluid or adenopathy within the pelvis. Prior hysterectomy. Bones: Lumbar scoliosis. L4 anterolisthesis by 9 mm. L5 anterolisthesis by 4 mm. Facet joint arthriti s is moderate at L4-5 and L5-S1. CT/CT abdomen pelvis w con* [id number] IMPRESSION: 1. No acute inflammatory changes are noted within the abdomen or pelvis. 2. Extensive diverticula in the descending and sigmoid colon but no evidence f or acute diverticulitis. 3. Prior appendectomy and cholecystectomy. 4. No renal obstruction or perinephric stranding. 5. Very mild mucosal thickening involving the stomach may be due to underdiste ntion. Gastritis to be considered as a possible etiology.
[2022-03-04] MEDS: iohexol 350 mg/mL 100 mL Btl IV (15:35)
[2022-03-04] MEDS: iohexol 350 mg/mL 100 mL Btl PO (15:36)
== END 2022-03-04 13:44 | disposition home or self-care (01) ==
LOC: RAD 13:44
PROVIDERS: PCP Family Medicine; Visit Provider Nurse Practitioner Family
DX: K57.30 Diverticulosis of large intestine without perforation or abscess without bleeding (principal)
CPT/HCPCS: 74177; 85651; 86140; 86160; 86162; 86235; 86255; 86376; 86431; 86618; 86666; 86757

== ENCOUNTER → 2022-03-09 07:57 | Outpatient (BNVA) | payer MEDICARE, OTHER, SELFPAY | PROVIDERS: PCP Family Medicine; Visit Provider Nurse Practitioner Family | DX: D70.9 Neutropenia, unspecified (principal) | CPT/HCPCS: 85025 ==